=== PATIENT | female | born 1965 | race Two or more races ===

== ENCOUNTER 2017-05-17 09:12 | Outpatient (CLI) | payer OTHER | END 2017-05-17 09:16 | disposition home or self-care (01) | LOC: LAB 09:12 | DX: C73 Malignant neoplasm of thyroid gland (principal); E89.0 Postprocedural hypothyroidism ==

== ENCOUNTER 2018-01-02 08:53 | Outpatient (CLI) | payer OTHER | END 2018-01-02 09:10 | disposition home or self-care (01) | LOC: LAB 08:53 | DX: C73 Malignant neoplasm of thyroid gland (principal); E89.0 Postprocedural hypothyroidism ==

== ENCOUNTER 2018-01-16 09:05 | Outpatient (CLI) | payer OTHER | END 2018-01-16 09:23 | disposition home or self-care (01) | LOC: LAB 09:05 | DX: N39.0 Urinary tract infection, site not specified (principal); E11.9 Type 2 diabetes mellitus without complications; E78.2 Mixed hyperlipidemia; E78.3 Hyperchylomicronemia; D66 Hereditary factor VIII deficiency; D65 Disseminated intravascular coagulation [defibrination syndrome]; Z01.810 Encounter for preprocedural cardiovascular examination ==

== ENCOUNTER 2018-01-23 05:15 | Day surgery (SDC) | payer OTHER | END 2018-01-23 13:05 | disposition home or self-care (01) | LOC: CIR.AMB 05:15 | DX: M65.322 Trigger finger, left index finger (principal) ==

== ENCOUNTER → 2022-10-17 | Outpatient (CLI) | payer OTHER | END | disposition home or self-care (01) | LOC: SONOGRAMA 15:31 | PROVIDERS: ATTEND Pathology Anatomic Pathology & Clinical Pathology | DX: D11.0 Benign neoplasm of parotid gland (principal) ==